=== PATIENT | male | born 1970 | race Caucasian/White ===

== ENCOUNTER 2024-10-17 15:51 | Emergency (ER) | payer MEDICAID ==
[~2024-10-17] VITALS: Ht 175.3 cm; Wt 95.9 kg
[2024-10-17] MEDS: proparacaine 0.5% ophthalmic drops 15ml RIGHTEYE ONE (17:56)
--- NOTE | 2024-10-17 18:06 | Physician Documentation ---
History of Present Illness ~ Chief Complaint: Eye Pain Stated Complaint: EYE PAIN Time Seen by MD: 17:54 [facility] 53-year-old male who presents to the emergency department reporting that he was cleaning up some branches on his property when he inadvertently was poked in eye just prior to arrival. Reduced vision, significant pain for reported. Medication Reconciliation Allergies: Coded Allergies: No Known Allergies (Unverified , 10/17/24) Scheduled Erythromycin Base Opth. Ointment* (Erythromycin Opth. Ointment*), 1 APPLIC RIGHTEYE Q4HWA Review of Systems ROS As stated above in the HPI, otherwise all systems are reviewed and negative. Physical Exam Vital Signs: Temperature: 98.2, Source: Temporal, Heart Rate: 105, Respiratory Rate: 18, BP: 139/87, Pulse Oximetry: 95, Weight: 95.910 Oxygen Flow Rate: 0 Physical Exam General: Alert, no apparent distress. Eyes: V shaped corneal abrasion right upper eye with globe intact. Respiratory: Lungs clear, no respiratory distress. Chest: No accessory muscle use. Cardiovascular: Regular rate and rhythm, no murmurs. Gastrointestinal: Soft, nontender, nondistended. Bowels sounds present. Extremities: Normal range of motion, no deformity. Neurologic: Oriented x4. Psychiatric: Normal mood and affect. Skin: Normal color, warm and dry. No edema, no ecchymosis. Visual Acuity : Eye Location: Right Vision Acuity Degree: 20/70 Correction: Uncorrected Procedures Procedures Fluoroscein stain performed after procaine instilled into right eye. V shaped right upper eye abrasion noted. EFRA Ba also examined patient and affirmed plan of care to treat with eye ointment and pain meds. Offered patient pain RX but he declined, stating a preference to use OTC Ibuprofen and acetaminophen. Progress Results/Orders Results/Orders Orders - ROSAURA FORDE NP Eye Procedure (10/17/24 17:35) Completed Orders - ROSAURA FORDE DENTAL BILLING SPECIALIST Proparacaine Ophth Solution (Alcaine Oph (10/17/24 17:35) Erythromycin Ophth Ointment (Ilotycin Op (10/17/24 18:10) Medications Received in ER Medications (Trade) Dose Ordered Sig/Milly Route PRN Reason Start Time Stop Time Status Last Admin Dose Admin (Ilotycin ophth ointment) 0.25 inch ONCE ONCE RIGHTEYE 10/17/24 18:10 10/17/24 18:11 DC 10/17/24 18:21 0.25 INCH Vital Signs 10/17/24 15:54 Temp 98.2 Pulse 105 Resp 18 B/P (MAP) 139/87 Pulse Ox 95 O2 Flow Rate 0 Medical Decision Making Additional Comment Reduced vision right eye 20/70 when compared to left eye 20/25. However, this was after procaine and fluorescein for eye exam. Discussed with patient need to see opthalmologist within next couple days or return if worse. RX for erythromycin eye ointment. Departure Time of Disposition: 18:05 Disposition: HOME / SELF CARE / HOMELESS Impression: Primary Impression: Corneal abrasion Qualified Codes: S05.01XA - Injury of conjunctiva and corneal abrasion without foreign body, right eye, initial encounter Condition: Stable Discharge Instructions: Corneal Abrasion Additional Instructions: You have a large right corneal abrasion. Keep the eye covered and use the ointment as prescribed. Take Ibuprofen 600 mg every 6 hrs with food as needed for pain along with acetaminophen 650 mg every 6 hrs if needed. Is very important that you see an eye doctor within the next couple of days. Call your primary care and make a followup appointment within next couple days to request an urgent referral. Return if worse. Referrals: NO PRIMARY CARE PROVIDER (PCP) Prescriptions Erythromycin Base Opth. Ointment* (Erythromycin Opth. Ointment*) 1 Gm Tube 1 APPLIC RIGHTEYE Q4HWA, #1 EACH Prov: ROSAURA FORDE DENTAL BILLING SPECIALIST 10/17/24 Education Educated: Patient Educated regarding: diagnosis, treatment, prognosis, need for follow up Signature Scribe Signature: x Attestation: The note accurately reflects work and decisions made by me.Rosaura Forde - MATT 10/17/24 18:32 ROSAURA FORDE NP Oct 17, 2024 18:06
[2024-10-17] MEDS ORDERED: ERYT1OIN6 RIGHTEYE (18:07)
[2024-10-17] MEDS: erythromycin ophthalmic ointment 1gm tube RIGHTEYE ONE (18:21)
[2024-10-17 18:55] VITALS: BP 136/86; PULSE 99; RESP 18; TEMP 98.6; O2SAT 98
== END 2024-10-17 18:56 | disposition home or self-care (01) ==
LOC: ER 15:53
DX: S05.01XA Injury of conjunctiva and corneal abrasion without foreign body, right eye, initial encounter (principal); X58.XXXA Exposure to other specified factors, initial encounter; Y93.89 Activity, other specified; Y92.89 Other specified places as the place of occurrence of the external cause; Y99.8 Other external cause status
CPT/HCPCS: 99283; A6410